=== PATIENT | female | born 1980 | race Caucasian/White ===

== ENCOUNTER 2016-05-19 23:25 | Emergency (ER) | payer MEDICAID, OTHER ==
[~2016-05-19] VITALS: Ht 157.5 cm; Wt 80.3 kg
[2016-05-20] MEDS ORDERED: ACETAMINOPHEN 500 MG TAB PO ONE (03:00)
[2016-05-20 04:42] VITALS: BP 104/64
== END 2016-05-20 05:47 | disposition home or self-care (01) ==
LOC: ER 23:30
DX: O26.892 Other specified pregnancy related conditions, second trimester (principal); S80.12XA Contusion of left lower leg, initial encounter; S00.03XA Contusion of scalp, initial encounter; M54.9 Dorsalgia, unspecified; Z3A.16 16 weeks gestation of pregnancy; G89.29 Other chronic pain; Z88.1 Allergy status to other antibiotic agents; Y08.89XA Assault by other specified means, initial encounter; Y93.89 Activity, other specified; Y99.8 Other external cause status; Y92.89 Other specified places as the place of occurrence of the external cause
CPT/HCPCS: 76805